=== PATIENT | female | born 1970 | race Caucasian/White ===

== ENCOUNTER → 2021-12-15 07:02 | Outpatient (CLI) | payer OTHER, SELFPAY ==
[2021-12-15 08:51] LABS: Add Manual Diff / Slide Review NO; Basophils Absolute Auto 0 /uL (0-100); Basophils Percent Auto 0.3 % (0-2); Eosinophils Absolute Auto 100 /uL (0-450); Eosinophils Percent Auto 1.5 % (2-4); Hematocrit 38.7 % (36-46); Hemoglobin 13.1 g/dL (12.0-16.0); Lymphocytes Absolute Auto 2100 /uL (1100-4500); Lymphocytes Percent Auto 43.1 % (25-40); Mean Corpuscular HGB Conc 33.8 % (30-36); Mean Corpuscular Hemoglobin 29.8 PG (26-34); Mean Corpuscular Volume 88.1 fL (80-100); Monocytes Absolute Auto 300 /uL (0-900); Monocytes Percent Auto 7.1 % (3-14); Neutrophils Absolute Auto 2300 /uL (1500-7000); Platelet Count 189 X10^3/uL (150-400); Red Blood Cell Count 4.39 X10^6/uL (4.0-5.2); Red Cell Distribution Width 13.2 % (11.6-14.8); White Blood Cell Count 4.8 X10^3/uL (4.5-11.0)
[2021-12-15 09:07] LABS: Alanine Aminotransferase 8 IU/L (<35); Albumin 3.8 g/dL (3.5-5.0); Albumin Globulin Ratio 1.2 (1.0-2.8); Alkaline Phosphatase 36 U/L (38-126); Aspartate Aminotransferase 20 IU/L (14-36); BUN Creatinine Ratio 22.4 (6-22); Bilirubin Total 0.7 mg/dL (0.2-1.3); Blood Urea Nitrogen 15 mg/dL (7-17); Calcium 9.1 mg/dL (8.4-10.2); Carbon Dioxide 31 mmol/L (22-32); Chloride 107 mmol/L (98-107); Cholesterol 177 mg/dL (140-199); Estimated Glomerular Filt Rate > 60.0 mL/min (>60); Globulin 3.1 g/dL (1.7-4.1); Glucose 97 mg/dL (70-100); HDL Cholesterol 55 mg/dL (40-60); HEMOLYSIS < 15 (0-50); LDL Cholesterol Calculated 102 mg/dL (<100); Potassium 4.5 mmol/L (3.4-5.1); Sodium 139 mmol/L (137-145); Total Protein 6.9 g/dL (6.3-8.2); Triglycerides 99 mg/dL (35-150)
[2021-12-15 12:43] LABS: Microalbumin Urine Random < 0.6 mg/dL (0-1.6)
== END ==
PROVIDERS: PCP Family Medicine; Referring Provider Family Medicine; Visit Provider Family Medicine
DX: I10 Essential (primary) hypertension (principal); M21.619 Bunion of unspecified foot; Z85.828 Personal history of other malignant neoplasm of skin
CPT/HCPCS: 36415; 80053; 80061; 82043; 82570; 85025

== ENCOUNTER → 2022-01-16 13:31 | Outpatient (CLI) | payer OTHER, SELFPAY ==
[2022-01-16 14:07] LABS: Add Manual Diff / Slide Review NO; Basophils Absolute Auto 0 /uL (0-100); Basophils Percent Auto 0.3 % (0-2); Eosinophils Absolute Auto 0 /uL (0-450); Eosinophils Percent Auto 0.5 % (2-4); Hematocrit 38.1 % (36-46); Hemoglobin 12.9 g/dL (12.0-16.0); Lymphocytes Absolute Auto 2100 /uL (1100-4500); Lymphocytes Percent Auto 32.5 % (25-40); Mean Corpuscular HGB Conc 33.8 % (30-36); Mean Corpuscular Hemoglobin 30.3 PG (26-34); Mean Corpuscular Volume 89.6 fL (80-100); Monocytes Absolute Auto 400 /uL (0-900); Monocytes Percent Auto 5.6 % (3-14); Neutrophils Absolute Auto 3900 /uL (1500-7000); Neutrophils Percent Auto 61.1 % (50-75); Platelet Count 189 X10^3/uL (150-400); Red Blood Cell Count 4.26 X10^6/uL (4.0-5.2); Red Cell Distribution Width 13.7 % (11.6-14.8); White Blood Cell Count 6.3 X10^3/uL (4.5-11.0)
[2022-01-16 14:25] LABS: Alanine Aminotransferase 10 IU/L (<35); Albumin 4.6 g/dL (3.5-5.0); Albumin Globulin Ratio 1.4 (1.0-2.8); Alkaline Phosphatase 40 U/L (38-126); Aspartate Aminotransferase 24 IU/L (14-36); BUN Creatinine Ratio 24.7 (6-22); Bilirubin Total 0.7 mg/dL (0.2-1.3); Blood Urea Nitrogen 18 mg/dL (7-17); C-Reactive Protein Quant < 0.5 mg/dL (<1.0); Carbon Dioxide 26 mmol/L (22-32); Chloride 106 mmol/L (98-107); Estimated Glomerular Filt Rate > 60.0 mL/min (>60); Globulin 3.3 g/dL (1.7-4.1); Glucose 99 mg/dL (70-100); HEMOLYSIS < 15 (0-50); Potassium 4.4 mmol/L (3.4-5.1); Sodium 138 mmol/L (137-145); Total Protein 7.9 g/dL (6.3-8.2)
[2022-01-16 14:26] LABS: Erythrocyte Sedimentation Rate 7 MM/HR (0-20)
[2022-01-16 15:09] LABS: TSH w/ Reflex to FT4 2.37 uIU/mL (0.47-4.68)
[2022-01-18 19:16] LABS: ANA Screen, IFA Negative (.)
== END ==
PROVIDERS: PCP Family Medicine; Referring Provider Family Medicine; Visit Provider Family Medicine
DX: I10 Essential (primary) hypertension (principal); R20.2 Paresthesia of skin; R20.9 Unspecified disturbances of skin sensation; M79.89 Other specified soft tissue disorders
CPT/HCPCS: 36415; 80053; 84443; 85025; 85651; 86038; 86140

== ENCOUNTER → 2022-03-06 08:54 | Outpatient (CLI) | payer OTHER, SELFPAY ==
--- NOTE | 2022-03-06 08:56 | DI.US.S_ITS ---
PROCEDURE: US PERIPH VENOUS LOW EXTREM RT INDICATIONS: INTERMITTENT RIGHT FOOT SWELLING TECHNIQUE: Real-time imaging, as well as color and pulse Doppler interrogation, were performed of the lower extremity deep veins from the inguinal ligament to the popliteal fossa. COMPARISON: None. FINDINGS: The common femoral, femoral and popliteal veins are normally compressible, and free of intraluminal thrombus. Color and pulse Doppler demonstrate normal phasic intraluminal flow. There is normal augmentation response to distal compression maneuver. An area of soft tissue swelling is seen involving the right foot, which demonstrates generalized soft tissue edema. IMPRESSION: Negative for deep venous thrombosis. Dictated by: Luigi Case M.D. on 03/06/2022 at 9:05 Approved by: Luigi Case M.D. on 03/06/2022 at 9:06
== END ==
PROVIDERS: PCP Family Medicine; Referring Provider Family Medicine; Visit Provider Family Medicine
DX: R20.2 Paresthesia of skin (principal); R60.0 Localized edema
CPT/HCPCS: 93971

== ENCOUNTER 2022-04-07 17:40 | Emergency (ER) | payer OTHER, SELFPAY ==
[2022-04-07 17:40] VITALS: BP 154/74; PULSE 86; RESP 18; TEMP 37.1; O2SAT 98; BMI 28.8
--- NOTE | 2022-04-07 18:10 | ED.SKABFB ---
HPI - Skin/Abscess/Foreign Bdy <RUTHIE Grider - Last Filed: 04/07/22 20:32> General Chief complaint: Skin/Abscess/Foreign Body Stated complaint: Swollen foot, rash, sent from [facility] Time Seen by Provider: 04/07/22 17:58 Source: patient Mode of arrival: Ambulatory Limitations: no limitations History of Present Illness HPI narrative: This is a 51-year-old female presents to the emergency department complaining of right foot swelling since November 2021 without known cause. Patient then states that she has had right foot erythema, pruritus, and significant swelling for the last three days. She states that she had a blister in between her 4th and 5th toes which developed after she had a pruritic rash on her foot, states that her right foot is very itchy swollen, and tender to any touch. She states that she was seen by her PCP Dr. Rodriguez on 01/16/2022 for cold feet. She states that her bilateral lower extremities are swollen, cold, when she works out it is worse. She states that she has a blister in between her 4th and 5th toe on the right, she denies having history of diabetes, states that all of her labs were within normal limits on her evaluation by primary care on 01/16/2022. Her DAVI was negative at that time. Related Data Home Medications Medication Instructions Recorded Confirmed lisinopril 5 mg tablet 5 mg PO DAILY 01/16/22 01/16/22 Previous Rx's Medication Instructions Recorded doxycycline hyclate 100 mg capsule 100 mg PO DAILY 7 days #14 caps 04/07/22 hydrocodone 5 mg-acetaminophen 325 1 tab PO BID PRN pain 1 week #14 04/07/22 mg tablet tabs hydrocortisone 1 % topical cream 1 applic topical BID PRN itching 3 04/07/22 days #28.35 grams hydroxyzine pamoate 25 mg capsule 25 mg PO BID PRN itching #14 caps 04/07/22 mupirocin 2 % topical ointment 1 applic topical BID 7 days #15 04/07/22 grams naproxen 250 mg tablet 250 mg PO BID PRN pain #20 tabs 04/07/22 Allergies Allergy/AdvReac Type Severity Reaction Status Date / Time Sulfa (Sulfonamide Allergy Severe Fever Verified 12/25/21 08:18 Antibiotics) Review of Systems <RUTHIE Grider - Last Filed: 04/07/22 20:32> Review of Systems Narrative: General: denies fever, chills, malaise, sweats, fatigue Head/Neck: denies headache, neck pain, dizziness Eyes: denies visual changes, eye pain Cardio: denies chest pain, palpitations, edema Respiratory: denies dyspnea, cough, orthopnea GI: denies abdominal pain, nausea, vomiting, or diarrhea : denies dysuria, hematuria, urinary retention, frequency or incontinence MSK: denies joint pain, muscle weakness Skin: Endorses a blister in between her 4th and 5th toes on the right foot, denies other skin lesions Neuro: denies numbness, tingling Patient History <RUTHIE Grider - Last Filed: 04/07/22 20:32> Medical History Bunion of unspecified foot Cervical cancer screening [place] or callus Family history of basal cell carcinoma Hypertension Onychomycosis Screening for HPV (human papillomavirus) Social History Smoking Status: Never smoker Smoking Status: Never smoker alcohol intake frequency: a few times a month Substance Use Type: does not use Exam <RUTHIE Grider - Last Filed: 04/07/22 20:32> Narrative Exam Narrative: Independently reviewed vitals signs and nursing notes. General: cooperative, comfortable, in no acute distress, well groomed Head: atraumatic, symmetrical facial expressions Neck: supple Eyes: equal round and reactive, EOMI, conjunctiva normal Nose: nares patent, no rhinorrhea Mouth/Throat: moist mucus membranes Cardiovascular: regular rate and rhythm, no peripheral edema, warm extremities Respiratory: normal effort, able to speak in complete sentences, no audible wheezing, stridor, or rales. No retractions or tachypnea. GI: abdomen soft, nontender to palpation, nondistended, no masses, no exquisite tenderness with exam, without guarding or rebound. MSK: moves all extremities, neurovascularly intact, no weakness, normal tone Skin: brisk capillary refill, right foot with erythema, edema, and a blister between 4th and 5th toes which was cultured. There is a line drawn around her ankle just above the malleoli which is where the erythema and edema stop. It is diffusely present on the dorsum of her right foot without any extension onto the plantar aspect, no fluctuance, palpable fluid collection, crepitus or drainage to obtain. No appearance of fungus, patient complains of pruritus on her right foot Neuro: normal speech and cognition, A&O x3 Psych: mental status is grossly normal, congruent mood, normal affect, pleasant and cooperative Initial Vital Signs Initial Vital Signs: Vital Signs Temperature 98.8 F 04/07/22 17:40 Pulse Rate 86 04/07/22 17:40 Respiratory Rate 18 04/07/22 17:40 Blood Pressure 154/74 H 04/07/22 17:40 Pulse Oximetry 98 04/07/22 17:40 Oxygen Delivery Method 04/07/22 17:40 <Mikayla Rodriguez DO - Last Filed: 04/08/22 08:11> Initial Vital Signs Initial Vital Signs: Vital Signs Temperature 98.8 F 04/07/22 17:40 Pulse Rate 86 04/07/22 17:40 Respiratory Rate 18 04/07/22 17:40 Blood Pressure 154/74 H 04/07/22 17:40 Pulse Oximetry 98 04/07/22 17:40 Oxygen Delivery Method 04/07/22 17:40 Course <RUTHIE Grider - Last Filed: 04/07/22 20:32> Orders Ordered: Discontinued Medications Acetaminophen (Acetaminophen 325 Mg Tablet) 650 mg PO NOW ONE Stop: 04/07/22 18:16 Last Admin: 04/07/22 18:59 Dose: 650 mg Documented By: NR Hydrocodone Bitart/Acetaminophen (Hydrocodone/Acet 5/325 Tablet) 1 tab PO NOW ONE Stop: 04/07/22 18:16 Last Admin: 04/07/22 18:58 Dose: 1 tab Documented By: NR Doxycycline Hyclate (Doxycycline Hyclate 100 Mg Tablet) 100 mg PO NOW ONE Stop: 04/07/22 18:16 Last Admin: 04/07/22 18:58 Dose: 100 mg Documented By: NR Ketorolac Tromethamine (Ketorolac 10 Mg Tablet) 10 mg PO NOW ONE Stop: 04/07/22 18:16 Last Admin: 04/07/22 18:58 Dose: 10 mg Documented By: NR Vital Signs Vital signs: Vital Signs - 8 hr 04/07/22 17:40 04/07/22 19:23 Temperature 98.8 F Pulse Rate 86 68 Respiratory Rate 18 18 Blood Pressure 154/74 H 150/70 H Pulse Oximetry 98 98 Oxygen Delivery Method Room Air <Mikayla Rodriguez DO - Last Filed: 04/08/22 08:11> Orders Ordered: Discontinued Medications Acetaminophen (Acetaminophen 325 Mg Tablet) 650 mg PO NOW ONE Stop: 04/07/22 18:16 Last Admin: 04/07/22 18:59 Dose: 650 mg Documented By: NR Hydrocodone Bitart/Acetaminophen (Hydrocodone/Acet 5/325 Tablet) 1 tab PO NOW ONE Stop: 04/07/22 18:16 Last Admin: 04/07/22 18:58 Dose: 1 tab Documented By: NR Doxycycline Hyclate (Doxycycline Hyclate 100 Mg Tablet) 100 mg PO NOW ONE Stop: 04/07/22 18:16 Last Admin: 04/07/22 18:58 Dose: 100 mg Documented By: NR Ketorolac Tromethamine (Ketorolac 10 Mg Tablet) 10 mg PO NOW ONE Stop: 04/07/22 18:16 Last Admin: 04/07/22 18:58 Dose: 10 mg Documented By: NR Vital Signs Vital signs: Vital Signs - 8 hr 04/07/22 17:40 04/07/22 19:23 Temperature 98.8 F Pulse Rate 86 68 Respiratory Rate 18 18 Blood Pressure 154/74 H 150/70 H Pulse Oximetry 98 98 Oxygen Delivery Method Room Air MDM - Skin/Abscess/Foreign Bdy <RUTHIE Grider - Last Filed: 04/07/22 20:32> Imaging Data Extremity x-ray #1: Radiologist's Impression: PROCEDURE:? XR FOOT RT MIN 3V ? INDICATIONS:? cellulitis, c/f air or foreign body, wound inbetween / ? TECHNIQUE:? Three views of the foot were acquired.? ? COMPARISON:? None. ? FINDINGS:? ? Bones:? No acute fractures or dislocations.? No suspicious bony lesions.? No focal cortical destruction is seen to suggest osteomyelitis radiographically. ? Soft tissues:? Soft tissue edema is seen at the dorsum of the foot. ? IMPRESSION:? No acute osseous abnormality.? Soft tissue edema is seen at the dorsum of the foot.? If clinical suspicion and/or symptoms persist, additional imaging with repeat plain films, or advanced imaging (e.g. CT, MRI) may be helpful for further assessment. ? ? Dictated by: Bishop Orlando M.D. on 04/07/2022 at 19:39 ? ? Approved by: Bishop Orlando M.D. on 04/07/2022 at 19:40 ? MDM Narrative Medical decision making narrative: This is a 51-year-old female presents to the emergency department with three days of worsening erythema and edema in her right foot which she states is pruritic and started out as a rash on the dorsum near her 4th and 5th toe. She states that that progress into a blister in between her 4th and 5th toes, and from there she has small papules across the dorsum of her foot which she describes as pruritic, beefy red erythema and edema to the dorsum of her foot and extending just above the malleoli. PT and DP pulses are 2+ and palpable, her medial and lateral malleoli are discuss eyes by the edema. No extension of edema or erythema upper leg or any streaking. No appreciable edema notable on her left lower extremity. This is most likely cellulitis, a wound culture was obtained of the blister is, gram stain shows occasional wbc's and GPCs. Foot x-ray is negative for is radiopaque foreign body and subcutaneous air. Patient was treated with doxycycline, she was given prescriptions for comfort including naproxen, mupirocin, hydroxyzine, hydrocortisone cream, and hydrocodone. Encourage patient to elevate her leg, take her antibiotics as prescribed, return for worsening and spreading up beyond her marked line around her ankle. We will follow-up on a wound culture, she was given strict return precautions. This is most likely cellulitis without abscess, differential includes candidal infection, gas producing bacterium, and Pseudomonas infections. Patient is appropriate and amenable to discharge home. Vital signs are stable on repeat examination is unremarkable. Patient has been informed of results. Patient has been given strict return to ER precautions for any new or worsening symptoms. Patient understands to follow up closely with outpatient providers as instructed. Patient understands plan and agrees to discharge home. All questions and concerns answered at this time. Discharge Plan Departure Patient Disposition: Home Clinical Impression: Cellulitis of foot, Cellulitis Instructions: DI for Cellulitis -- Adult Activity Restrictions/Additional Instructions: *You have been diagnosed with cellulitis in your right foot. There is no gas or palpable abscess in your foot right now which is a great thing. Thank you for outlining it so I can see how bad it is. Please take doxycycline twice a day for the next seven days, please return to the emergency department if your redness spreads up beyond the line that you have drawn. We will follow-up on the culture that I took of the blister and call you if we need to change your antibiotic. Please follow-up with Dr. Rodriguez about your foot swelling after seeing Rheumatology if it is still persistent. Please stay hydrated, take Tylenol and hydrocodone as needed for your pain. I have sent a number of medications over to [facility]'s pharmacy. The antibiotic twice a day for seven days, hydrocortisone cream can be helpful for itching, hydrocodone is for pain, hydroxyzine is for itching, might make you slightly sleepy but less so than Benadryl, mupirocin ointment is for that blister, and naproxen is an anti-inflammatory to take along with your hydrocodone as needed for pain. Please return for any worsening swelling beyond that line, worsening pain that you cannot manage with these medications, states or if we call you to you to come back. Thank you for your patience and I hope you feel better soon. Your x-rays reassuring that there is no gas underneath the skin. *What to do: *Please continue to take your regular medications as directed. [x ] New medication prescriptions sent to your pharmacy: [April ] [ ] New medication written as a paper prescription [ ] No new medications given *Please follow up with your primary care provider in 2-3 days, call for an appointment. Let them know you were seen in the Emergency Department and that we asked that you be seen for follow-up. We will electronically transmit a record of today's note if your PCP is in our system *If you do not have a primary care provider please contact [phone] to establish care with one of the [facility] primary care providers. *Return to Emergency Department if you should have any new, worsening or concerning symptoms, such as [fever greater than 101F, chills, worsening pain, persistent vomiting or other bothersome symptoms] Prescriptions: New doxycycline hyclate 100 mg capsule 100 mg PO DAILY 7 Days Qty: 14 0RF mupirocin 2 % ointment 1 applic topical BID 7 Days Qty: 15 0RF hydrocortisone 1 % cream 1 applic topical BID PRN (Reason: itching) 3 Days Qty: 28.35 0RF hydroxyzine pamoate 25 mg capsule 25 mg PO BID PRN (Reason: itching) Qty: 14 0RF hydrocodone-acetaminophen 5-325 mg tablet 1 tab PO BID PRN (Reason: pain) 7 Days Qty: 14 0RF naproxen 250 mg tablet 250 mg PO BID PRN (Reason: pain) Qty: 20 0RF No Action lisinopril 5 mg tablet 5 mg PO DAILY Referrals: Evens Rodriguez MD [Primary Care Provider] - Visit Report Forms: Patient Portal/API <Mikayla Rodriguez DO - Last Filed: 04/08/22 08:11> Cosign ED Attending Cosnateature Attestation: I was immediately available in the department for consultation. Documentation has been reviewed.
--- NOTE | 2022-04-07 18:52 | DI.RAD.S_ITS ---
PROCEDURE: XR FOOT RT MIN 3V INDICATIONS: cellulitis, c/f air or foreign body, wound inbetween / TECHNIQUE: Three views of the foot were acquired. COMPARISON: None. FINDINGS: Bones: No acute fractures or dislocations. No suspicious bony lesions. No focal cortical destruction is seen to suggest osteomyelitis radiographically. Soft tissues: Soft tissue edema is seen at the dorsum of the foot. IMPRESSION: No acute osseous abnormality. Soft tissue edema is seen at the dorsum of the foot. If clinical suspicion and/or symptoms persist, additional imaging with repeat plain films, or advanced imaging (e.g. CT, MRI) may be helpful for further assessment. Dictated by: Bishop Orlando M.D. on 04/07/2022 at 19:39 Approved by: Bishop Orlando M.D. on 04/07/2022 at 19:40
[2022-04-07] MEDS: DOXYCYCLINE HYCLATE 100 MG TABLET PO (18:58)
[2022-04-07] MEDS: HYDROCODONE/ACET 5/325 TABLET 1 TAB PO (18:58)
[2022-04-07] MEDS: KETOROLAC 10 MG TABLET PO (18:58)
[2022-04-07] MEDS: ACETAMINOPHEN 325 MG TABLET 650 MG PO (18:59)
[2022-04-07 19:23] VITALS: BP 150/70; PULSE 68; RESP 18; O2SAT 98
== END 2022-04-07 19:47 | disposition home or self-care (01) ==
PROVIDERS: Emergency Provider Nurse Practitioner Critical Care Medicine; PCP Family Medicine
DX: L03.115 Cellulitis of right lower limb (principal)
CPT/HCPCS: 73620; 87070; 87075; 87077; 87147; 87186; 87205; 99283

== ENCOUNTER 2022-04-10 10:04 | Emergency (ER) | payer OTHER, SELFPAY ==
[2022-04-10 10:08] VITALS: BP 143/76; PULSE 78; RESP 14; TEMP 36.9; O2SAT 100; BMI 28.8
--- NOTE | 2022-04-10 10:17 | ED_ITS ---
HPI - Skin/Abscess/Foreign Bdy General Chief complaint: Skin/Abscess/Foreign Body Stated complaint: here saturday right foot still not better Time Seen by Provider: 04/10/22 10:17 Source: patient Mode of arrival: Ambulatory Limitations: no limitations History of Present Illness HPI narrative: 51F non-smoker returns for evaluation of right foot redness, swelling and pain. She states that she has had swelling off and on in this foot for quite some time, but developed redness over the past few days. She had been seen and evaluated here and was treated with antibiotics for presumed cellulitis and given appropriate return precautions. She had written a line at the extent of her erythema and states that as slightly crusted. Overall she denies any systemic findings such as fever, chills nor nausea or vomiting. The erythema of her right foot on the whole has improved but there is some migration of it laterally. She has question about the dosing of the antibiotic turns out that though the intent was to give it twice daily she has only been taking it daily. Related Data Home Medications Medication Instructions Recorded Confirmed lisinopril 5 mg tablet 5 mg PO DAILY 01/16/22 01/16/22 Previous Rx's Medication Instructions Recorded doxycycline hyclate 100 mg capsule 100 mg PO DAILY 7 days #14 caps 04/07/22 hydrocodone 5 mg-acetaminophen 325 1 tab PO BID PRN pain 1 week #14 04/07/22 mg tablet tabs hydroxyzine pamoate 25 mg capsule 25 mg PO BID PRN itching #14 caps 04/07/22 mupirocin 2 % topical ointment 1 applic topical BID 7 days #15 04/07/22 grams naproxen 250 mg tablet 250 mg PO BID PRN pain #20 tabs 04/07/22 Allergies Allergy/AdvReac Type Severity Reaction Status Date / Time Sulfa (Sulfonamide Allergy Severe Fever Verified 04/10/22 10:13 Antibiotics) Review of Systems Review of Systems Narrative: GENERAL: See HPI HEENT: Denies sinus pain, ear pain, sore throat, difficulty swallowing, dizziness. RESPIRATORY: Denies dyspnea, cough, wheezing, hemoptysis, sputum. CARDIOVASCULAR: Denies chest pain, palpitations, orthopnea, edema, GASTROINTESTINAL: Denies nausea, vomiting, abdominal pain, diarrhea, constipation, melena. : Denies dysuria, frequency, incontinence, hematuria, urinary retention. MUSCULOSKELETAL: denies weakness, joint pain, or bony pain SKIN: See HPI NEUROLOGIC: Denies weakness, headache, numbness, change in speech, confusion, seizures, incoordination. PSYCHIATRIC: No concerning psychosocial issues. 12 point review of systems is negative except for those stated above Patient History Medical History Bunion of unspecified foot Cervical cancer screening [place] or callus Family history of basal cell carcinoma Hypertension Onychomycosis Screening for HPV (human papillomavirus) Social History Smoking Status: Never smoker Smoking Status: Never smoker alcohol intake frequency: a few times a month Substance Use Type: does not use Exam Narrative Exam Narrative: GEN: AOx3 and in mild distress EYES: Pupils are equal, round, and reactive to light and accommodation. Extraoccular muscles are intact bilaterally. There is no subconjunctival hemorrhage or exudate. CHEST: Lungs are clear to auscultation bilaterally and free of wheezes, rales, or rhonchi. Heart rate is regular rhythm, there are no murmurs, clicks, rubs, or gallops. There is no chest wall tenderness. ABD: Abdomen is soft and nontender. There is no guarding or rebound. Bowel sounds are normal in all 4 quadrants. There is no mass or organomegaly. EXT: Full painless ROM of all extremities with no loss of sensation or strength. SKIN: Right foot with erythema, improved per patient and based on appearance on photograph, with moderate swelling, no lymphangitis noted, no calf pain or swelling, no medial thigh pain. Initial Vital Signs Initial Vital Signs: Vital Signs Temperature 98.5 F 04/10/22 10:08 Pulse Rate 78 04/10/22 10:08 Respiratory Rate 14 04/10/22 10:08 Blood Pressure 143/76 H 04/10/22 10:08 Pulse Oximetry 100 04/10/22 10:08 Oxygen Delivery Method 04/10/22 10:08 Course Vital Signs Vital signs: Vital Signs - 8 hr 04/10/22 10:08 Temperature 98.5 F Pulse Rate 78 Respiratory Rate 14 Blood Pressure 143/76 H Pulse Oximetry 100 Oxygen Delivery Method Room Air MDM - Skin/Abscess/Foreign Bdy MDM Narrative Medical decision making narrative: Patient returns for evaluation. Overall she has improved clinical appearance and has not been taking medications as intended. We did discuss the utility of expanded workup including labs and potentially imaging but sure the opinion that this is likely actually moving in the right direction despite being under treated thus far. She will begin taking doxycycline twice daily, follow-up as previously discussed, return precautions are reiterated. Questions answered to her apparent satisfaction Discharge Plan Departure Patient Disposition: Home Clinical Impression: Cellulitis Qualifiers: Site of cellulitis: extremity Site of cellulitis of extremity: lower extremity Laterality: right Qualified Code(s): L03.115 - Cellulitis of right lower limb Instructions: DI for Cellulitis -- Adult Activity Restrictions/Additional Instructions: *You have been diagnosed with [right foot cellulitis] *What to do: *Please take the doxycycline twice daily *Please follow up with your primary care provider in 2-3 days, call for an appointment. Let them know you were seen in the Emergency Department and that we ask that you be seen in follow up. We will electronically transmit a record of today's note if your PCP is in our system *If you do not have a primary care provider please contact the [facility] Resource line at [phone]. They will ask some questions about your medical history and help get you set up with a doctor in the community. *Return to Emergency Department if you should have any new, worsening or concerning symptoms, such as [fever greater than 101 F, shaking chills, worsening pain, persistent vomiting or other bothersome symptoms] Prescriptions: No Action lisinopril 5 mg tablet 5 mg PO DAILY doxycycline hyclate 100 mg capsule 100 mg PO DAILY 7 Days Qty: 14 0RF mupirocin 2 % ointment 1 applic topical BID 7 Days Qty: 15 0RF hydroxyzine pamoate 25 mg capsule 25 mg PO BID PRN (Reason: itching) Qty: 14 0RF hydrocodone-acetaminophen 5-325 mg tablet 1 tab PO BID PRN (Reason: pain) 7 Days Qty: 14 0RF naproxen 250 mg tablet 250 mg PO BID PRN (Reason: pain) Qty: 20 0RF Referrals: Evens Rodriguez MD [Primary Care Provider] - Visit Report Forms: Patient Portal/API
== END 2022-04-10 10:36 | disposition home or self-care (01) ==
PROVIDERS: Emergency Provider Emergency Medicine; PCP Family Medicine
DX: L03.115 Cellulitis of right lower limb (principal)
CPT/HCPCS: 99281

== ENCOUNTER → 2022-04-20 07:48 | Outpatient (CLI) | payer OTHER, SELFPAY ==
--- NOTE | 2022-04-20 | DI.MG.S_ITS ---
BILATERAL DIGITAL SCREENING MAMMOGRAM 3D/2D WITH CAD: 04/20/2022 CLINICAL: Routine screening. Comparison is made to exams dated: 04/19/2021 mammogram and 03/28/2020 mammogram - outside. There are scattered fibroglandular elements in both breasts. Current study was also evaluated with a Computer Aided Detection (CAD) system. No significant masses, calcifications, or other findings are seen in either breast. There has been no significant interval change. IMPRESSION: NEGATIVE There is no mammographic evidence of malignancy. A 1 year screening mammogram is recommended. Based on the Tyrer Cuzick model (a risk assessment model) the patient's lifetime risk is 9.7% and her 10 year risk is 2.5%. According to the ACR, ACS, and NCCN guidelines, an annual breast MRI exam along with mammogram is recommended if the patient's lifetime risk is 20% or greater. This exam was interpreted at Station ID: [id number]. NOTE: For mammograms, a report in lay terms will be sent to the patient. Approximately 15% of breast malignancies will not be visualized mammographically. In the management of a palpable breast mass, a negative mammogram must not discourage biopsy of a clinically suspicious lesion. Electronically Signed By: Michael Rodriguez acr/ashutosh:04/23/2022 08:54:21 letter sent: Normal Exam ACR BI-RADS Category 1: Negative [id number]
[2022-04-20 12:38] LABS: Add Manual Diff / Slide Review NO; Basophils Absolute Auto 0 /uL (0-100); Basophils Percent Auto 0.5 % (0-2); Eosinophils Absolute Auto 100 /uL (0-450); Eosinophils Percent Auto 1.3 % (2-4); Hemoglobin 13.3 g/dL (12.0-16.0); Lymphocytes Absolute Auto 2400 /uL (1100-4500); Lymphocytes Percent Auto 41.5 % (25-40); Mean Corpuscular HGB Conc 33.3 % (30-36); Mean Corpuscular Hemoglobin 29.8 PG (26-34); Mean Corpuscular Volume 89.4 fL (80-100); Monocytes Absolute Auto 400 /uL (0-900); Monocytes Percent Auto 7.4 % (3-14); Neutrophils Absolute Auto 2900 /uL (1500-7000); Neutrophils Percent Auto 49.3 % (50-75); Platelet Count 226 X10^3/uL (150-400); Red Blood Cell Count 4.47 X10^6/uL (4.0-5.2); Red Cell Distribution Width 13.8 % (11.6-14.8); White Blood Cell Count 5.8 X10^3/uL (4.5-11.0)
[2022-04-20 13:23] LABS: Alanine Aminotransferase 12 IU/L (<35); Albumin 4.7 g/dL (3.5-5.0); Albumin Globulin Ratio 1.5 (1.0-2.8); Alkaline Phosphatase 52 U/L (38-126); Aspartate Aminotransferase 26 IU/L (14-36); BUN Creatinine Ratio 20.2 (6-22); Bilirubin Total 0.9 mg/dL (0.2-1.3); Blood Urea Nitrogen 17 mg/dL (7-17); Calcium 9.1 mg/dL (8.4-10.2); Carbon Dioxide 30 mmol/L (22-32); Chloride 102 mmol/L (98-107); Estimated Glomerular Filt Rate > 60 mL/min (>60); Globulin 3.2 g/dL (1.7-4.1); Glucose 94 mg/dL (70-100); HEMOLYSIS < 15 (0-50); Potassium 4.5 mmol/L (3.4-5.1); Sodium 138 mmol/L (137-145); Total Protein 7.9 g/dL (6.3-8.2)
== END ==
PROVIDERS: PCP Family Medicine; Referring Provider Family Medicine; Visit Provider Family Medicine
DX: Z12.31 Encounter for screening mammogram for malignant neoplasm of breast (principal); L03.119 Cellulitis of unspecified part of limb; M79.89 Other specified soft tissue disorders
CPT/HCPCS: 36415; 77063; 77067; 80053; 85025

== ENCOUNTER → 2022-05-04 11:49 | Outpatient (CLI) | payer OTHER, SELFPAY ==
--- NOTE | 2022-05-04 11:50 | DI.MRI.S_ITS ---
PROCEDURE: MR ANKLE RT WO/W CON INDICATIONS: RLE lymphedema TECHNIQUE: Noncontrast sagittal T1 spin echo and T2 fast spin echo with fat saturation, axial proton density fast spin echo and T2 fast spin echo with fat saturation, axial T1 spin echo with fat saturation, coronal T1 spin echo and T2 fast spin echo with fat saturation through the ankle/hindfoot. Post-contrast axial, coronal, and sagittal T1 spin echo with fat saturation through the ankle/hindfoot. COMPARISON: [facility], CR, XR FOOT RT MIN 3V, 04/07/2022, 18:55. FINDINGS: Image quality: Excellent. Bones and joints: No bone marrow contusions or fractures. No hindfoot coalitions. No osteochondral injuries of the talar dome. Mild nonspecific subcutaneous soft tissue edema is seen at the dorsal lateral aspect of the foot. Medial structures: The deep and superficial layers of the deltoid ligament appear intact. The spring ligament components are intact. The posterior tibialis, flexor digitorum longus, and flexor hallucis longus tendons are intact. The posterior tibial neurovascular bundle appears normal within the tarsal tunnel, without extrinsic mass effect. Lateral structures: Mild thickening of the proximal anterior talofibular ligament and calcaneofibular ligament are most likely secondary to remote prior low-grade sprains. The posterior talofibular ligament is intact. The anterior and posterior tibiofibular ligaments appear intact. The peroneus longus and brevis tendons demonstrate tendinosis and tenosynovitis. The sinus tarsi demonstrates normal fatty signal, without edema, fibrosis, or cyst formation. Anterior structures: The tibialis anterior, extensor hallucis longus, and extensor digitorum longus tendons appear intact. The dorsal talonavicular ligament appears intact. Posterior and plantar structures: Achilles tendon is intact. Medial and lateral bands of the plantar fascia are of normal thickness. No abductor digiti quinti muscle atrophy to suggest Edwards neuropathy. IMPRESSION: 1. Mild peroneus brevis and longus tenosynovitis. 2. Chronic low-grade sprains of the anterior talofibular ligament and calcaneofibular ligament. 3. Nonspecific subcutaneous soft tissue edema at the lateral aspect of the foot. No abnormal enhancement or soft tissue mass. Dictated by: Bishop Orlando M.D. on 05/04/2022 at 13:07 Approved by: Bishop Orlando M.D. on 05/04/2022 at 13:18
--- NOTE | 2022-05-04 11:50 | DI.MRI.S_ITS ---
PROCEDURE: MR KNEE RT WO/W CON INDICATIONS: RLE lymphedema TECHNIQUE: Noncontrast sagittal PD fast spin echo and T2 fast spin echo with fat saturation, sagittal 3-D FLASH with fat saturation; coronal T1 spin echo and PD fast spin echo with fat saturation, and axial T1 spin echo and PD fast spin echo with fat saturation through the knee. Post-contrast axial, coronal, and sagittal T1 spin echo with fat saturation through the knee. COMPARISON: None. FINDINGS: Image quality: Excellent. Anterior Cruciate Ligament: Intact. Posterior Cruciate Ligament: Intact. Medial Collateral Ligament: Mild thickening of the proximal medial collateral ligament is most likely secondary to a remote prior low-grade sprain. Lateral Collateral Ligament: Intact. Medial Meniscus: Mild intrasubstance signal is seen in the body of the medial meniscus without extension to an articular surface, most compatible with intrasubstance degeneration. Lateral Meniscus: Intact. Medial and Lateral Tendons: The semimembranosus tendon insertions and meniscocapsular junction appear intact. Visualized portions of the pes anserinus tendons appear normal. No abnormal bursal fluid. The long and short heads of the biceps femoris tendon appear intact. The popliteus tendon appears intact. No signs of posterolateral corner injury. Iliotibial band appears normal. Anterior Structures: The quadriceps and patellar tendons appear intact. No patellar subluxation. No femoral trochlear dysplasia or ventral trochlear prominence. No edema in the infrapatellar fat pad. Bones: No acute trabecular bone injury or fracture. Medial Femorotibial Cartilage: Mild generalized cartilage thinning in the weight-bearing portion of the medial femorotibial compartment. Lateral Femorotibial Cartilage: No focal cartilage defect. Patellofemoral Cartilage: Deep cartilage fissuring is seen in the anterior compartment of the lateral patellar facet. Soft Tissues: A small joint effusion is present. Small medial popliteal cyst. The musculature surrounding the knee is normal in bulk. No suspicious soft tissue enhancement or soft tissue mass. IMPRESSION: 1. Intrasubstance degeneration in the body of the medial meniscus without a discrete meniscal tear. 2. Chronic low-grade sprain of the proximal medial collateral ligament. 3. Mild grade 2 cartilage thinning in the medial compartment and focal cartilage fissuring in the anterior compartment. 4. Small joint effusion. Small medial popliteal cyst. 5. No suspicious soft tissue enhancement or mass. Dictated by: Bishop Orlando M.D. on 05/04/2022 at 13:50 Approved by: Bishop Orlando M.D. on 05/04/2022 at 13:59
== END ==
PROVIDERS: PCP Family Medicine; Referring Provider Family Medicine; Visit Provider Family Medicine
DX: S93.411A Sprain of calcaneofibular ligament of right ankle, initial encounter (principal); S93.491A Sprain of other ligament of right ankle, initial encounter; S83.411A Sprain of medial collateral ligament of right knee, initial encounter; M65.871 Other synovitis and tenosynovitis, right ankle and foot; M25.461 Effusion, right knee; M71.21 Synovial cyst of popliteal space [Baker], right knee; I89.0 Lymphedema, not elsewhere classified; M79.89 Other specified soft tissue disorders; L03.115 Cellulitis of right lower limb; R60.0 Localized edema
CPT/HCPCS: 73723

== ENCOUNTER → 2022-10-30 10:30 | Outpatient (CLI) | payer OTHER, SELFPAY ==
--- NOTE | 2022-10-30 | DI.CT.S_ITS ---
PROCEDURE: CT ANGIO ABDOMEN PELVIS INDICATIONS: LOWER LEG SWELLING TECHNIQUE: After the administration of intravenous contrast, 2.5 mm thick sections acquired from the diaphragm to the symphysis. 10 mm maximum-intensity projection (MIP) reformats were then acquired. For radiation dose reduction, the following was used: automated exposure control. COMPARISON: [facility], US, US PÉREZ RIGHT, 09/12/2022, 15:59. FINDINGS: Image quality: Excellent. Aorta: No abdominal aortic aneurysm or dissection. Both renal arteries are patent. Mesenteric arteries: Celiac trunk, superior and inferior mesenteric arteries appear patent. Right pelvic arteries: No iliac artery aneurysm or dissection. No high-grade stenosis of the common iliac or external iliac arteries. Left pelvic arteries: No iliac artery aneurysm or dissection. No high-grade stenosis of the common iliac or external iliac arteries. Extravascular soft tissues: No pleural effusion. Liver is normal in size and enhancement. Gallbladder is unremarkable . Biliary system is non dilated. Pancreas enhances normally. Spleen is normal in size and enhancement. No adrenal nodules. Kidneys are normal in size and enhancement, without hydronephrosis. No bowel obstruction. No free air or substantial free fluid. No retroperitoneal or mesenteric adenopathy. The uterus is not well visualized and may be surgically absent or atrophic. Uterus and ovaries are not well evaluated by CT. Multilevel degenerative change of the visualized spine. IMPRESSION: 1. No abdominal aortic aneurysm or dissection. 2. No iliac artery aneurysm, dissection, or evidence of high-grade stenosis. Dictated by: Bishop Mondragon M.D. on 10/31/2022 at 9:05 Approved by: Bishop Mondragon M.D. on 10/31/2022 at 9:23
== END ==
LOC: CT 10:31
PROVIDERS: PCP Family Medicine; Referring Provider Internal Medicine Rheumatology; Visit Provider Internal Medicine Rheumatology
DX: R22.41 Localized swelling, mass and lump, right lower limb (principal); R22.42 Localized swelling, mass and lump, left lower limb
CPT/HCPCS: 74174; Q9967

== ENCOUNTER → 2023-01-01 10:32 | Outpatient (CLI) | payer OTHER, SELFPAY ==
[2023-01-01 12:15] LABS: Follicle Stimulating Hormone 8.77 mIU/mL
== END ==
PROVIDERS: PCP Family Medicine; Referring Provider Obstetrics & Gynecology; Visit Provider Obstetrics & Gynecology
DX: Z78.0 Asymptomatic menopausal state (principal)
CPT/HCPCS: 36415; 83001

== ENCOUNTER → 2023-01-04 14:21 | Outpatient (CLI) | payer OTHER, SELFPAY ==
[2023-01-04 14:57] LABS: Hemoglobin A1C% w Est Avg Glu 5.3 % (4.0-6.0)
[2023-01-04 15:01] LABS: C-Reactive Protein Quant < 0.5 mg/dL (<1.0); Erythrocyte Sedimentation Rate 5 MM/HR (0-20)
[2023-01-07 15:37] LABS: Alpha-1-Globulin 0.2 g/dL (0.0-0.4); Alpha-2-Globulin 0.6 g/dL (0.4-1.0); Gamma Globulin 1.4 g/dL (0.4-1.8); Globulin Total 3.1 g/dL (2.2-3.9); Protein, Total 7.1 g/dL (6.0-8.5)
[2023-01-08 13:30] LABS: M-Spike % Not Observed % (Not Observed); Urine Total Protein 5.4 mg/dL (Not Estab.)
== END ==
PROVIDERS: PCP Internal Medicine; Referring Provider Internal Medicine; Visit Provider Internal Medicine
DX: D89.1 Cryoglobulinemia (principal); I10 Essential (primary) hypertension; I89.0 Lymphedema, not elsewhere classified; R73.01 Impaired fasting glucose; R77.9 Abnormality of plasma protein, unspecified
CPT/HCPCS: 36415; 82595; 83036; 84155; 84156; 84165; 84166; 85651; 86140

== ENCOUNTER → 2023-04-22 09:47 | Outpatient (CLI) | payer OTHER, SELFPAY ==
--- NOTE | 2023-04-22 | DI.MG.S_ITS ---
BILATERAL DIGITAL SCREENING MAMMOGRAM 3D/2D WITH CAD: 04/22/2023 CLINICAL: Routine screening. Comparison is made to exams dated: 04/20/2022 mammogram - [facility], 04/19/2021 mammogram, and 03/28/2020 mammogram - outside. There are scattered areas of fibroglandular density in both breasts (category b / 25%-50% glandular tissue). Current study was also evaluated with a Computer Aided Detection (CAD) system. No significant masses, calcifications, or other findings are seen in either breast. There has been no significant interval change. IMPRESSION: NEGATIVE There is no mammographic evidence of malignancy. A 1 year screening mammogram is recommended. Based on the Tyrer Cuzick model (a risk assessment model) the patient's lifetime risk is 9.8% and her 10 year risk is 2.7%. According to the ACR, ACS, and NCCN guidelines, an annual breast MRI exam along with mammogram is recommended if the patient's lifetime risk is 20% or greater. This exam was interpreted at Station ID: [id number]. NOTE: For mammograms, a report in lay terms will be sent to the patient. Approximately 15% of breast malignancies will not be visualized mammographically. In the management of a palpable breast mass, a negative mammogram must not discourage biopsy of a clinically suspicious lesion. Electronically Signed By: Quirino rodriguez/ashutosh:04/22/2023 10:40:09 letter sent: Normal Exam ACR BI-RADS Category 1: Negative 3341F
== END ==
PROVIDERS: PCP Internal Medicine; Referring Provider Internal Medicine; Visit Provider Internal Medicine
DX: Z12.31 Encounter for screening mammogram for malignant neoplasm of breast (principal)
CPT/HCPCS: 77063; 77067

== ENCOUNTER → 2024-04-22 09:02 | Outpatient (CLI) | payer OTHER, SELFPAY ==
[2024-04-22 10:42] LABS: Add Manual Diff / Slide Review NO; Basophils Absolute Auto 0 /uL (0-100); Basophils Percent Auto 0.2 % (0-2); Eosinophils Absolute Auto 0 /uL (0-450); Eosinophils Percent Auto 0.6 % (2-4); Hematocrit 39.4 % (36-46); Hemoglobin 13.4 g/dL (12.0-16.0); Lymphocytes Absolute Auto 2000 /uL (1100-4500); Lymphocytes Percent Auto 28.1 % (25-40); Mean Corpuscular Hemoglobin 30.6 PG (26-34); Monocytes Absolute Auto 400 /uL (0-900); Monocytes Percent Auto 5.9 % (3-14); Neutrophils Absolute Auto 4600 /uL (1500-7000); Neutrophils Percent Auto 65.2 % (50-75); Platelet Count 205 X10^3/uL (150-400); Red Blood Cell Count 4.37 X10^6/uL (4.0-5.2)
[2024-04-22 11:07] LABS: Hemoglobin A1C% w Est Avg Glu 5.3 % (4.0-6.0)
[2024-04-22 11:15] LABS: Erythrocyte Sedimentation Rate 4 MM/HR (0-20)
[2024-04-22 11:27] LABS: Alanine Aminotransferase 9 IU/L (<35); Albumin 4.2 g/dL (3.5-5.0); Albumin Globulin Ratio 1.4 (1.0-2.8); Alkaline Phosphatase 42 U/L (38-126); Aspartate Aminotransferase 23 IU/L (14-36); BUN Creatinine Ratio 22.2 (6-22); Bilirubin Total 0.9 mg/dL (0.2-1.3); Blood Urea Nitrogen 16 mg/dL (7-17); C-Reactive Protein Quant < 0.5 mg/dL (<1.0); Calcium 8.6 mg/dL (8.4-10.2); Carbon Dioxide 28 mmol/L (22-32); Chloride 107 mmol/L (98-107); Cholesterol 189 mg/dL (140-199); Estimated Glomerular Filt Rate > 60 mL/min (>60); Globulin 3.1 g/dL (1.7-4.1); Glucose 87 mg/dL (70-100); HDL Cholesterol 67 mg/dL (40-60); HEMOLYSIS < 15 (0-50); LDL Cholesterol Calculated 106 mg/dL (<100); Potassium 4.3 mmol/L (3.4-5.1); Sodium 139 mmol/L (137-145); Total Protein 7.3 g/dL (6.3-8.2); Triglycerides 80 mg/dL (35-150)
[2024-04-22 11:33] LABS: Rheumatoid Factor < 8.6 IU/mL (<12.0)
[2024-04-22 11:55] LABS: TSH w/ Reflex to FT4 1.51 uIU/mL (0.47-4.68)
== END ==
PROVIDERS: PCP Student in an Organized Health Care Education/Training Program; Referring Provider Student in an Organized Health Care Education/Training Program; Visit Provider Student in an Organized Health Care Education/Training Program
DX: Z13.1 Encounter for screening for diabetes mellitus (principal); Z13.29 Encounter for screening for other suspected endocrine disorder; Z13.89 Encounter for screening for other disorder; Z11.9 Encounter for screening for infectious and parasitic diseases, unspecified; E66.3 Overweight; I89.0 Lymphedema, not elsewhere classified; M24.811 Other specific joint derangements of right shoulder, not elsewhere classified
CPT/HCPCS: 36415; 80053; 80061; 83036; 84443; 85025; 85651; 86140; 86430

== ENCOUNTER → 2024-04-24 15:56 | Outpatient (CLI) | payer OTHER, SELFPAY ==
--- NOTE | 2024-04-24 15:57 | DI.MG.S_ITS ---
BILATERAL DIGITAL SCREENING MAMMOGRAM 3D/2D WITH CAD: 04/24/2024 CLINICAL: Routine screening. Comparison is made to exams dated: 04/22/2023 mammogram, 04/20/2022 mammogram - [facility], and 04/19/2021 mammogram - outside. There are scattered areas of fibroglandular density in both breasts (category b / 25%-50% glandular tissue). Current study was also evaluated with a Computer Aided Detection (CAD) system. No significant masses, calcifications, or other findings are seen in either breast. There has been no significant interval change. IMPRESSION: NEGATIVE There is no mammographic evidence of malignancy. A 1 year screening mammogram is recommended. Based on the Tyrer Cuzick model (a risk assessment model) the patient's lifetime risk is 9.8% and her 10 year risk is 2.8%. According to the ACR, ACS, and NCCN guidelines, an annual breast MRI exam along with mammogram is recommended if the patient's lifetime risk is 20% or greater. This exam was interpreted at Station ID: [id number]. NOTE: For mammograms, a report in lay terms will be sent to the patient. Approximately 15% of breast malignancies will not be visualized mammographically. In the management of a palpable breast mass, a negative mammogram must not discourage biopsy of a clinically suspicious lesion. Electronically Signed By: Sha okeefe/[email or web address]:04/24/2024 16:42:46 letter sent: Normal Exam ACR BI-RADS Category 1: Negative [id number]
== END ==
PROVIDERS: PCP Student in an Organized Health Care Education/Training Program; Referring Provider Student in an Organized Health Care Education/Training Program; Visit Provider Student in an Organized Health Care Education/Training Program
DX: Z12.31 Encounter for screening mammogram for malignant neoplasm of breast (principal); R92.323 Mammographic fibroglandular density, bilateral breasts
CPT/HCPCS: 77063; 77067

== ENCOUNTER 2025-03-04 21:56 | Emergency (ER) | payer OTHER, SELFPAY ==
[2025-03-04 22:17] VITALS: BP 127/62; PULSE 77; RESP 22; TEMP 37.7; O2SAT 100; BMI 24.0
[2025-03-05] VITALS (9 sets, daily range): BP systolic 101–144; BP diastolic 55–73; PULSE 60–71; O2SAT 95–100
--- NOTE | 2025-03-05 00:22 | ED.BACK ---
HPI - Back Pain/Injury General Chief Complaint: Back Pain/Injury Stated Complaint: severe back pain Time Seen by Provider: 03/04/25 23:49 Source: patient History of Present Illness HPI Narrative: 54-year-old female was moving furniture lifting a couch earlier today, felt sudden pain in the left buttock area, with some radiation to the left leg. No incontinence of urine or stool. No weakness to the leg. She did try Flexeril old supply which did not help. No fevers or chills. No midline or upper back discomfort. No prior back injections or surgeries. Related Data Home Medications Medication Instructions Recorded Confirmed semaglutide 2 mg/dose (8 mg/3 mL) 2 mg SUBCUT QWEEK 03/01/25 03/05/25 subcutaneous pen injector Previous Rx's Medication Instructions Recorded cyclobenzaprine 5 mg tablet 5 mg PO TID PRN muscle spasm #90 04/21/24 tabs methocarbamol 500 mg tablet 500 mg PO TID 7 days #21 tabs 03/05/25 naproxen 500 mg tablet 500 mg PO BID 7 days #14 tabs 03/05/25 prednisone 20 mg tablet 40 mg (2 x 20 mg) PO DAILY 5 days 03/05/25 #10 tabs Allergies Allergy/AdvReac Type Severity Reaction Status Date / Time Sulfa (Sulfonamide Allergy Severe Fever Verified 05/26/24 08:17 Antibiotics) Patient History Medical History (Updated 03/05/25 @ 01:35 by Kofi Lopez MD) Overweight Derangement of right acromioclavicular joint Lichen planus Polyneuropathy, unspecified Essential hypertension Family history of basal cell carcinoma [place] or callus Onychomycosis Bunion of unspecified foot Surgical History (Updated 04/21/24 @ 10:15 by Vale Gupta MA) History of section (06/06/11) History of partial hysterectomy Social History details: , homemaker, 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 HEAD: Atraumatic. Normocephalic. EYES: Pupils equal round and reactive. Extraocular motions intact. No scleral icterus. No injection or drainage. ENT: Nose without bleeding, purulent drainage. Throat without erythema, tonsillar hypertrophy or exudate. Airway patent. NECK: Trachea midline. Non tender CARDIOVASCULAR: Regular rate and rhythm without murmurs, gallops, or rubs. RESPIRATORY: Clear to auscultation. Breath sounds equal bilaterally. No wheezes, rales, or rhonchi. GASTROINTESTINAL: Abdomen soft, non-tender, nondistended. EXTREMITIES: No edema or joint tenderness. BACK: Nontender without deformity or crepitance. No flank tenderness. No midline lumbar tenderness or paraspinal tenderness. Some tenderness along the left sciatic groove, not particularly tender in the sacroiliac joint region. No skin changes or vesicles or redness. NEURO: AOx3. Motor functions grossly nonfocal. SKIN: No rash or erythema of visible areas Initial Vital Signs Initial Vital Signs: Vital Signs Temperature 100 F H 03/04/25 22:17 Pulse Rate 77 03/04/25 22:17 Respiratory Rate 22 03/04/25 22:17 Blood Pressure 127/62 03/04/25 22:17 Pulse Oximetry 100 03/04/25 22:17 Oxygen Delivery Method Room Air 03/04/25 22:17 Course Orders Ordered: Discontinued Medications Hydrocodone Bitart/Acetaminophen (Hydrocodone/Acet 5/325 Prepack) 1 [facility] Stop: 03/05/25 02:50 Last Admin: 03/05/25 03:35 Dose: 1 bottle Documented By: ERMA Dexamethasone (Dexamethasone 10 Mg/Ml Vial) 10 mg IV NOW ONE Stop: 03/05/25 00:43 Last Admin: 03/05/25 01:04 Dose: 10 mg Documented By: MARIA DE JESUS Diazepam (Diazepam 10 Mg/2 Ml Syringe) 5 mg IV NOW ONE Stop: 03/05/25 00:43 Last Admin: 03/05/25 01:07 Dose: 5 mg Documented By: MARIA DE JESUS Hydromorphone HCl (Hydromorphone 1 Mg Inj) 1 mg IV NOW ONE Stop: 03/05/25 00:43 Last Admin: 03/05/25 01:06 Dose: 1 mg Documented By: MARIA DE JESUS Ketorolac Tromethamine (Ketorolac 30 Mg/Ml Vial) 15 mg IV NOW ONE Stop: 03/05/25 00:43 Last Admin: 03/05/25 01:06 Dose: 15 mg Documented By: MARIA DE JESUS Vital Signs Vital signs: Vital Signs - 8 hr 03/04/25 22:17 03/05/25 00:03 03/05/25 00:30 Temperature 100 F H Pulse Rate 77 66 Respiratory Rate 22 Blood Pressure 127/62 144/70 H Pulse Oximetry 100 100 Oxygen Delivery Method Room Air Oxygen Flow Rate 03/05/25 00:30 03/05/25 01:00 03/05/25 01:00 Temperature Pulse Rate 65 64 Respiratory Rate Blood Pressure 137/73 Pulse Oximetry 100 100 Oxygen Delivery Method Nasal Cannula Oxygen Flow Rate 2 03/05/25 01:30 03/05/25 01:30 03/05/25 02:00 Temperature Pulse Rate 65 Respiratory Rate Blood Pressure 105/57 L 102/55 L Pulse Oximetry 99 Oxygen Delivery Method Oxygen Flow Rate 03/05/25 02:00 03/05/25 02:31 03/05/25 02:31 Temperature Pulse Rate 63 71 Respiratory Rate Blood Pressure 109/58 L Pulse Oximetry 99 98 Oxygen Delivery Method Room Air Oxygen Flow Rate 03/05/25 02:59 03/05/25 03:00 03/05/25 03:00 Temperature Pulse Rate 60 61 Respiratory Rate Blood Pressure 102/58 L Pulse Oximetry 95 96 Oxygen Delivery Method Room Air Oxygen Flow Rate 03/05/25 03:30 03/05/25 03:30 Temperature Pulse Rate 64 Respiratory Rate Blood Pressure 101/58 L Pulse Oximetry 97 Oxygen Delivery Method Oxygen Flow Rate MDM - Back Pain/Injury MDM Narrative Medical decision making narrative: 54-year-old female with no prior back surgeries, felt pain in her left buttock after lifting couch. Tenderness in the left sciatic groove, not particularly tender in the left sacroiliac region, nor along midline lumbar spine or paraspinal lumbar musculature. Straight leg raise bilaterally 60? noted. Feels that she has too much pain to be able to walk. Requests pain medications. We will hold on advanced lumbar imaging at this time. IV Dilaudid, Toradol, Valium, Decadron. Symptoms improved. Prescription sent for naproxen, prednisone pulse, Robaxin/methocarbamol. Home pack hydrocodone/acetaminophen. Patient tolerated procedure well, seems improved. Discharged home. Return precautions mentioned in discharge paperwork. Discharge Plan Departure Patient Disposition: Home Clinical Impression: Left sided sciatica Instructions: DI for Sciatica Activity Restrictions/Additional Instructions: Left buttock area discomfort sciatic groove after moving furniture. Some tenderness in sciatic groove left side that reproduces symptoms. No tenderness at the mid low back midline or paraspinous musculature. CT lumbar spine advanced imaging not indicated at this time. Trial of anti-inflammatory medications, analgesics, steroids, muscle relaxants. IV therapies given in the emergency department. Prescription medication sent to your pharmacy. Recheck advised with your regular doctor on Saturday. Return to this/nearest emergency department for any change worsening symptoms or any concerns prior. Prescriptions: New prednisone 20 mg tablet 40 mg PO DAILY 5 Days Qty: 10 0RF naproxen 500 mg tablet 500 mg PO BID 7 Days Qty: 14 0RF methocarbamol 500 mg tablet 500 mg PO TID 7 Days Qty: 21 0RF No Action cyclobenzaprine 5 mg tablet 5 mg PO TID PRN (Reason: muscle spasm) Qty: 90 0RF semaglutide 2 mg/dose (8 mg/3 mL) pen injector 2 mg SUBCUT QWEEK Rx Instructions: she takes 40units of a compounded version that equals a 2mg dose Referrals: Tova Gutierrez MD [Primary Care Provider] - Stand Alone Forms: Patient Portal/API/Survey
[2025-03-05] MEDS: DEXAMETHASONE 10 MG/ML VIAL IV (01:04)
[2025-03-05] MEDS: KETOROLAC 30 MG/ML VIAL 15 MG IV (01:06)
[2025-03-05] MEDS: HYDROMORPHONE 1 MG INJ IV (01:06)
[2025-03-05] MEDS: diazePAM 10 MG/2 ML SYRINGE 5 MG IV (01:07)
[2025-03-05] MEDS: HYDROCODONE/ACET 5/325 PREPACK 1 BOTTLE MISC (03:35)
== END 2025-03-05 03:47 | disposition home or self-care (01) ==
PROVIDERS: Emergency Provider Emergency Medicine; PCP Student in an Organized Health Care Education/Training Program
DX: M54.32 Sciatica, left side; X50.0XXA Overexertion from strenuous movement or load, initial encounter
CPT/HCPCS: 96374; 96375; 99284; J1100; J1171; J1885; J3360

== ENCOUNTER → 2025-03-09 07:54 | Outpatient (CLI) | payer OTHER, SELFPAY ==
[2025-03-09 08:18] LABS: Hematocrit 40.5 % (36-46); Hemoglobin 13.7 g/dL (12.0-16.0); Mean Corpuscular HGB Conc 33.9 % (30-36); Mean Corpuscular Hemoglobin 30.1 PG (26-34); Mean Corpuscular Volume 88.8 fL (80-100); Platelet Count 233 X10^3/uL (150-400); Red Blood Cell Count 4.56 X10^6/uL (4.0-5.2); Red Cell Distribution Width 13.3 % (11.6-14.8); White Blood Cell Count 9.1 X10^3/uL (4.5-11.0)
[2025-03-09 08:33] LABS: Hemoglobin A1C% w Est Avg Glu 4.9 % (4.0-6.0)
[2025-03-09 08:49] LABS: Alanine Aminotransferase 13 IU/L (<35); Albumin 4.6 g/dL (3.5-5.0); Albumin Globulin Ratio 1.6 (1.0-2.8); Alkaline Phosphatase 46 U/L (38-126); Aspartate Aminotransferase 18 IU/L (14-36); BUN Creatinine Ratio 26.4 (6-22); Bilirubin Total 0.9 mg/dL (0.2-1.3); Blood Urea Nitrogen 19 mg/dL (7-17); Calcium 9.8 mg/dL (8.4-10.2); Carbon Dioxide 26 mmol/L (22-32); Chloride 106 mmol/L (98-107); Cholesterol 233 mg/dL (140-199); Estimated Glomerular Filt Rate > 60 mL/min (>60); Globulin 2.9 g/dL (1.7-4.1); Glucose 109 mg/dL (70-99); HDL Cholesterol 62 mg/dL (40-60); HEMOLYSIS < 15 (0-50); LDL Cholesterol Calculated 153 mg/dL (<100); Sodium 140 mmol/L (137-145); Total Protein 7.5 g/dL (6.3-8.2); Triglycerides 88 mg/dL (35-150)
[2025-03-09 09:20] LABS: TSH w/ Reflex to FT4 0.38 uIU/mL (0.47-4.68)
[2025-03-09 09:46] LABS: Free T4, Direct Thyroxine 1.39 ng/dL (0.78-2.19)
== END ==
PROVIDERS: PCP Student in an Organized Health Care Education/Training Program; Referring Provider Student in an Organized Health Care Education/Training Program; Visit Provider Student in an Organized Health Care Education/Training Program
DX: I10 Essential (primary) hypertension (principal); E66.3 Overweight; Z79.899 Other long term (current) drug therapy; Z13.1 Encounter for screening for diabetes mellitus; Z13.29 Encounter for screening for other suspected endocrine disorder; Z13.220 Encounter for screening for lipoid disorders
CPT/HCPCS: 36415; 80053; 80061; 83036; 84439; 84443; 85027